=== PATIENT | female | born 1950 | race Caucasian/White ===

== ENCOUNTER 2017-06-20 01:35 | Inpatient (IN) | payer OTHER, MEDICAID ==
[~2017-06-20] VITALS: Ht 149.9 cm; Wt 75.0 kg
[2017-06-20 02:45] LABS: CALCIUM 8.9 mg/dL (8.5-10.1); CARBON DIOXIDE 26.4 mmol/L (21-32); CHLORIDE SERUM 97 mmol/L (98-107); CREATININE SERUM 0.8 mg/dL (0.6-1.0); GFR1 > 60 mL/min; GLUCOSE SERUM 240 mg/dL (74-106); POTASSIUM SERUM 4.4 mmol/L (3.5-5.1); SODIUM SERUM 134 mmol/L (136-145)
[2017-06-20 02:46] LABS: PLATELET COUNT 372 x10^3mcL (130-400)
[2017-06-20 02:49] LABS: ALBUMIN 3.6 g/dL (3.4-5.0); ALKALINE PHOSPHATASE 102 U/L (46-116); ALT/SGPT 53 U/L (14-59); AST/SGOT 38 U/L (15-37); BILIRUBIN TOTAL 0.33 mg/dL (0.20-1.00); LIPASE 132 IU/L (73-393); TOTAL PROTEIN, SERUM 7.4 g/dL (6.4-8.2)
[2017-06-20 02:52] LABS: BASOPHIL % 2.2 % (0-2)
[2017-06-20 04:13] LABS: microscopic required? NO
[2017-06-20 04:19] LABS: urine erythrocyte NEGATIVE (NEGATIVE)
[2017-06-20] MEDS ORDERED: ENALAPRIL MALEA20 MG PO (04:20)
[2017-06-20] MEDS ORDERED: PRAVACHOL20 MG PO (04:20)
[2017-06-20] MEDS ORDERED: PANTOPRAZOLE SO40 M1 PO (04:21)
[2017-06-20] MEDS ORDERED: METFORMIN HCL1000 MG PO (04:22)
[2017-06-20] MEDS ORDERED: GLUCOTROL10 MG PO (04:22)
[2017-06-20] MEDS ORDERED: LEXAPRO20 MG PO (04:23)
[2017-06-20 04:47] LABS: CHOLESTEROL/HDL RATIO 2.7; MAGNESIUM 1.7 mg/dL (1.8-2.4); PHOSPHOROUS 3.1 mg/dL (2.5-4.9)
[2017-06-20 04:53] LABS: T3 TOTAL 1.06 ng/mL
[2017-06-20 04:56] LABS: FREE T4 1.06 ng/dL (0.76-1.46); FREE THYROXINE INDEX 2.7 ug/dL (1.4-4.5); T4(THYROXINE) 7.8 ug/dL (4.7-13.3)
[2017-06-20 05:09] VITALS: BP 112/55
[2017-06-20 08:52] VITALS: Ht 149.9 cm; Wt 75.0 kg
[2017-06-20 11:54] VITALS: BP 102/50
[2017-06-20 14:06] VITALS: BP 126/57
[2017-06-20 15:24] LABS: AMPHETAMINE QUAL UR NONE DETECTED (NEG <=1000)
[2017-06-20 16:52] VITALS: BP 114/54
[2017-06-20 20:40] VITALS: BP 115/52
[2017-06-21 06:02] VITALS: BP 121/56
[2017-06-21 06:52] LABS: CALCIUM 7.9 mg/dL (8.5-10.1); CARBON DIOXIDE 28.5 mmol/L (21-32); CHLORIDE SERUM 103 mmol/L (98-107); CREATININE SERUM 0.6 mg/dL (0.6-1.0); GFR1 > 60 mL/min; GLUCOSE SERUM 154 mg/dL (74-106); MAGNESIUM 2.4 mg/dL (1.8-2.4); PHOSPHOROUS 2.9 mg/dL (2.5-4.9); SODIUM SERUM 135 mmol/L (136-145)
[2017-06-21 08:11] LABS: BASOPHIL % 0.3 % (0-2); PLATELET COUNT 264 x10^3mcL (130-400)
[2017-06-21 08:18] LABS: RED CELL DISTRIBUTION WIDTH 15.4 % (11.5-14.5)
[2017-06-21 09:25] VITALS: BP 127/64
[2017-06-21 13:55] VITALS: BP 136/67
[2017-06-21 17:50] VITALS: BP 149/70
[2017-06-21 20:42] VITALS: BP 137/63
[2017-06-22 05:06] VITALS: BP 141/75
[2017-06-22 06:56] LABS: BASOPHIL % 0.4 % (0-2); PLATELET COUNT 310 x10^3mcL (130-400)
[2017-06-22 07:03] LABS: CALCIUM 8.4 mg/dL (8.5-10.1); CARBON DIOXIDE 28.3 mmol/L (21-32); CHLORIDE SERUM 107 mmol/L (98-107); CREATININE SERUM 0.6 mg/dL (0.6-1.0); GFR1 > 60 mL/min; GLUCOSE SERUM 145 mg/dL (74-106); MAGNESIUM 2.3 mg/dL (1.8-2.4); PHOSPHOROUS 2.7 mg/dL (2.5-4.9); POTASSIUM SERUM 3.8 mmol/L (3.5-5.1); SODIUM SERUM 144 mmol/L (136-145)
[2017-06-22 07:13] LABS: RED CELL DISTRIBUTION WIDTH 15.3 % (11.5-14.5)
[2017-06-22 09:49] VITALS: BP 139/79
[2017-06-22] MEDS ORDERED: COLACE100 MG PO ×2 (14:24→15:15)
[2017-06-22] MEDS ORDERED: NORCO1 TA2 PO (14:24)
[2017-06-22 14:31] VITALS: BP 139/79
== END 2017-06-22 15:32 | disposition home or self-care (01) | DRG 342 ==
LOC: ED 01:35 → DU 04:04 → MU 04:04 → DU 04:57 → MU 06-22 06:30
PROVIDERS: Emergency Medicine; Family Medicine; Surgery; ADMIT Family Medicine
PROC: 0DTJ4ZZ Resection of Appendix, Percutaneous Endoscopic Approach (ICD-10-PCS; principal; 2017-06-20 10:00)
DX: K35.80 Unspecified acute appendicitis (principal); E87.1 Hypo-osmolality and hyponatremia; D68.69 Other thrombophilia; E11.65 Type 2 diabetes mellitus with hyperglycemia; I11.9 Hypertensive heart disease without heart failure; E78.5 Hyperlipidemia, unspecified; D64.9 Anemia, unspecified; E83.42 Hypomagnesemia; K80.20 Calculus of gallbladder without cholecystitis without obstruction; N20.0 Calculus of kidney; F32.9 Major depressive disorder, single episode, unspecified; Z68.33 Body mass index [BMI] 33.0-33.9, adult; Z79.84 Long term (current) use of oral hypoglycemic drugs; Z96.651 Presence of right artificial knee joint
CPT/HCPCS: 82962; 83880; 84439; 94150; J0330; J1885; J2270; J2405; J2543; J2704; J2710; J3010; J3475; J3490; J7030; Q0092